=== PATIENT | male | born 1960 | race Hispanic/Latino ===

== ENCOUNTER 2021-01-25 19:47 | Emergency (ER) | payer SELFPAY ==
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
[2021-01-25] MEDS ORDERED: DIPHENHYDRAMINE 50 MG/ML VIAL ONE (20:35)
[2021-01-25] MEDS ORDERED: METHYLPREDNISOLONE 125 MG INJ ONE (20:35)
[2021-01-25] MEDS ORDERED: FAMOTIDINE 20 MG/2 ML VIAL IV ONE ×2 (20:35→21:03)
[2021-01-25] MEDS ORDERED: ALBUTEROL 2.5 MG/3 ML NEB SOL ONE (20:37)
[2021-01-25] MEDS ORDERED: IPRATROPIUM BROM 0.5MG/2.5ML ONE (20:37)
[2021-01-25 20:42] LABS: Absolute Lymphocytes (CBC) 1.1 K/uL (0.7-4.9); Basophils % 0.2 % (0-1.3); Hematocrit 44.9 % (39.6-49.0); Lymphocytes % 8.3 % (15.3-44.8); MPV 9.1 fL (7.6-11.3); RBC Red Blood Cell Count 5.03 M/uL (4.33-5.43)
[2021-01-25 20:57] LABS: Albumin 3.6 g/dL (3.4-5.0); Bilirubin Total 0.6 mg/dL (0.2-1.0); Potassium 3.8 mmol/L (3.5-5.1); Protein, Total 6.5 g/dL (6.4-8.2)
[2021-01-25] MEDS ORDERED: NA CHLORIDE 0.9% 1,000 ML ONE (21:03)
[2021-01-25 21:55] LABS: Blood Morphology Comment NOT SEEN (NOT SEEN); Platelet Estimate ADEQ
--- NOTE | 2021-01-25 22:53 | ER ---
Nurse's Notes [facility] Name: Fox Michele Age: 60 yrs Sex: Male : 1960 Arrival Date: 01/25/2021 Time: 19:54 Bed 18 Private MD: Diagnosis: Allergy, unspecified Presentation: 01/25 20:30 Ebola Screen: No symptoms or risks identified at this time. ea 20:30 Initial Sepsis Screen: Does the patient meet any 2 criteria? No. Patient's initial ea sepsis screen is negative. Does the patient have a suspected source of infection? No. Patient's initial sepsis screen is negative. Risk Assessment: Do you want to hurt yourself or someone else? Patient reports no desire to harm self or others. 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 ak2 Coronavirus screen: Client denies travel out of the [place] in the last 14 days. Onset: The symptoms/episode began/occurred acutely, 3 hour(s) ago. Anaphylaxis evaluation, the patient reports or I have noted the following symptoms which indicate a significant risk of anaphylaxis: shortness of breath urticaria. 20:35 Method Of Arrival: Ambulatory ak2 20:37 Coronavirus screen: At this time, the client does not indicate any symptoms associated ea with coronavirus-19. Onset of symptoms was January 25, 2021. 20:37 Acuity: KATRINA 2 ak2 Triage Assessment: 20:37 General: Appears in no apparent distress. ak2 Historical: - Allergies: 20:30 No Known Allergies; ea - Immunization history:: Adult Immunizations unknown. - Social history:: Patient/guardian denies using alcohol, street drugs, The patient lives with family, Smoking status: unknown. - Family history:: not pertinent. Screenin:26 Abuse screen: Denies threats or abuse. Nutritional screening: No deficits noted. ea Tuberculosis screening: No symptoms or risk factors identified. Fall Risk IV access (20 points). Assessment: 20:36 General: Appears uncomfortable, Behavior is appropriate for age. Pain: Denies pain. ea Neuro: Level of Consciousness is awake, alert, obeys commands, Oriented to person, place, time. Cardiovascular: Patient's skin is warm and dry. Respiratory: Airway is patent Respiratory effort is even, unlabored, Respiratory pattern is regular, symmetrical. 21:05 Reassessment: Patient and/or family updated on plan of care and expected duration. Pain ea level reassessed. Patient is alert, oriented x 3, equal unlabored respirations, skin warm/dry/pink. Patient states feeling better. 22:41 Reassessment: Patient and/or family updated on plan of care and expected duration. Pain ea level reassessed. Patient is alert, oriented x 3, equal unlabored respirations, skin warm/dry/pink. 23:00 Reassessment: Patient and/or family updated on plan of care and expected duration. Pain ea level reassessed. Patient is alert, oriented x 3, equal unlabored respirations, skin warm/dry/pink. Discharge instruction given to patient verbalized the understanding of instruction. Pt left ED ambulatory tolerating well. Vital Signs: 20:35 BP 120 / 86; Pulse 56; Resp 20; Temp 98.3; Pulse Ox 97% ; ak2 21:06 BP 129 / 68; Pulse 100; Resp 21; Pulse Ox 96% on R/A; ea 22:41 BP 112 / 72; Pulse 98; Resp 20; Pulse Ox 95% ; ea 23:01 BP 120 / 68; Pulse 90; Resp 18; Pulse Ox 98% ; ea ED Course: 19:54 Patient arrived in ED. es 20:14 Arnoldo Purvsi MD is Attending Physician. ma2 20:21 Luciana Do RN is Primary Nurse. ea 20:29 Arm band placed on right wrist. Patient placed in an exam room, on a stretcher, on ea pulse oximetry. 20:29 Patient has correct armband on for positive identification. Bed in low position. Call ea light in reach. Side rails up X2. gear and spline grinder on. Pulse ox on. NIBP on. 20:37 Triage completed. ak2 20:37 Inserted saline lock: 20 gauge in right antecubital area, using aseptic technique. ea Blood collected. 23:01 No provider procedures requiring assistance completed. IV discontinued, intact, ea bleeding controlled, No redness/swelling at site. Pressure dressing applied. Administered Medications: 20:28 Drug: Pepcid (famotidine) 10 mg Route: IVP; Site: right antecubital; ea 21:50 Follow up: Response: No adverse reaction ea 20:28 Drug: Benadryl (diphenhydrAMINE) 50 mg Route: IVP; Site: right antecubital; ea 21:50 Follow up: Response: No adverse reaction ea 20:29 Drug: SOLU-Medrol (methylPrednisoLONE) 125 mg Route: IVP; Site: right antecubital; ea 21:50 Follow up: Response: No adverse reaction ea 20:34 CANCELLED (Other Intervention Used): Benadryl (diphenhydrAMINE) 25 mg IVP once ea 20:35 Not Given (Other Intervention Used): Albuterol 2.5 mg Inhalation once ea 20:35 Drug: Albuterol - atroVENT (ipratropium) (3:1) (2.5 mg - 0.5 mg) 3 ml Route: Nebulizer; ea 21:50 Follow up: Response: No adverse reaction ea 20:36 Not Given (Duplicate Order): MethylPrednisoLONE 125 mg IVP once ea 20:50 Drug: Pepcid (famotidine) 20 mg Route: IVP; Site: right antecubital; ea 21:50 Follow up: Response: No adverse reaction ea 20:50 Drug: NS 0.9% 1000 ml Route: IV; Rate: 1 bolus; Site: right antecubital; ea 21:50 Follow up: Response: No adverse reaction; IV Status: Completed infusion; IV Intake: ea 1000ml Intake: 21:50 IV: 1000ml; Total: 1000ml. ea Outcome: 22:53 Discharge ordered by . praveen 23:01 Discharged to home ambulatory. ea 23:01 Condition: stable 23:01 Discharge instructions given to patient, Instructed on discharge instructions, follow up and referral plans. medication usage, Demonstrated understanding of instructions, follow-up care, medications, Prescriptions given X 3. 23:03 Patient left the ED. ea Signatures: Deneen Cagle Elena, RN RN Arnoldo Whiteside MD MD ma2 [place], Anthony ak2 Corrections: (The following items were deleted from the chart) 20:34 20:28 Benadryl (diphenhydrAMINE) 25 mg IVP in right antecubital ea ea 20:35 20:28 Albuterol 2.5 mg Inhalation ea ea
--- NOTE | 2021-01-25 22:53 | EDPHYS ---
Physician Documentation [facility] Name: Fox Michele Age: 60 yrs Sex: Male : 1960 Arrival Date: 01/25/2021 Time: 19:54 Bed 18 Private MD: ED Physician Arnoldo Purvis HPI: 01/25 21:38 This 60 yrs old Male presents to ER via Ambulatory with complaints of Itching, ma2 Breathing Difficulty. 21:38 The patient has shortness of breath at rest. Onset: The symptoms/episode began/occurred ma2 gradually, 3 day(s) ago. Associated signs and symptoms: Pertinent negatives: productive cough, fever, loss of consciousness. Severity of symptoms: At their worst the symptoms were moderate in the emergency department the symptoms are unchanged. The patient has not experienced similar symptoms in the past. Historical: - Allergies: 20:30 No Known Allergies; ea - Immunization history:: Adult Immunizations unknown. - Social history:: Patient/guardian denies using alcohol, street drugs, The patient lives with family, Smoking status: unknown. - Family history:: not pertinent. ROS: 21:38 Constitutional: Negative for fever, chills, and weight loss. ma2 21:38 All other systems are negative. Exam: 21:38 Constitutional: This is a well developed, well nourished patient who is awake, alert, ma2 and in no acute distress. Head/Face: Normocephalic, atraumatic. Eyes: Pupils equal round and reactive to light, extra-ocular motions intact. Lids and lashes normal. Conjunctiva and sclera are non-icteric and not injected. Cornea within normal limits. Periorbital areas with no swelling, redness, or edema. ENT: Nares patent. No nasal discharge, no septal abnormalities noted. Tympanic membranes are normal and external auditory canals are clear. Oropharynx with no redness, swelling, or masses, exudates, or evidence of obstruction, uvula midline. Mucous membranes moist. Neck: Trachea midline, no thyromegaly or masses palpated, and no cervical lymphadenopathy. Supple, full range of motion without nuchal rigidity, or vertebral point tenderness. No Meningismus. Chest/axilla: Normal chest wall appearance and motion. Nontender with no deformity. No lesions are appreciated. Cardiovascular: Regular rate and rhythm with a normal S1 and S2. No gallops, murmurs, or rubs. Normal PMI, no JVD. No pulse deficits. Respiratory: scattered wheezes, otherwise Lungs have equal breath sounds bilaterally, clear to auscultation and percussion. No rales, rhonchi o No increased work of breathing, no retractions or nasal flaring. Abdomen/GI: Soft, non-tender, with normal bowel sounds. No distension or tympany. No guarding or rebound. No evidence of tenderness throughout. Skin: diffuse hives, otherwise Warm, dry with normal turgor. Normal color with no rashes, no lesions, and no evidence of cellulitis. MS/ Extremity: Pulses equal, no cyanosis. Neurovascular intact. Full, normal range of motion. Neuro: Awake and alert, GCS 15, oriented to person, place, time, and situation. Cranial nerves II-XII grossly intact. Motor strength 5/5 in all extremities. Sensory grossly intact. Cerebellar exam normal. Normal gait. Vital Signs: 20:35 BP 120 / 86; Pulse 56; Resp 20; Temp 98.3; Pulse Ox 97% ; ak2 21:06 BP 129 / 68; Pulse 100; Resp 21; Pulse Ox 96% on R/A; ea 22:41 BP 112 / 72; Pulse 98; Resp 20; Pulse Ox 95% ; ea 23:01 BP 120 / 68; Pulse 90; Resp 18; Pulse Ox 98% ; ea MDM: 20:14 Patient medically screened. ma2 21:38 Differential diagnosis: asthma, Bronchitis Chronic Obstructive Pulmonary Disease ma2 reactive airway disease. Data reviewed: vital signs, nurses notes. Counseling: I had a detailed discussion with the patient and/or guardian regarding: the historical points, exam findings, and any diagnostic results supporting the discharge/admit diagnosis, the presence of at least one elevated blood pressure reading (>120/80) during this emergency department visit, the need for outpatient follow up. Response to treatment: the patient's symptoms have resolved after treatment. 01/25 20:28 Order name: CBC with Diff ma2 01/25 20:28 Order name: CMP ma2 01/25 20:29 Order name: CBC with Automated Diff; Complete Time: 22:53 EDMS 01/25 20: Order name: Comprehensive Metabolic Panel; Complete Time: 21:47 EDMS 01/25 20:43 Order name: Manual Differential; Complete Time: 22:53 EDMS Administered Medications: 20:28 Drug: Pepcid (famotidine) 10 mg Route: IVP; Site: right antecubital; ea 21:50 Follow up: Response: No adverse reaction ea 20:28 Drug: Benadryl (diphenhydrAMINE) 50 mg Route: IVP; Site: right antecubital; ea 21:50 Follow up: Response: No adverse reaction ea 20:29 Drug: SOLU-Medrol (methylPrednisoLONE) 125 mg Route: IVP; Site: right antecubital; ea 21:50 Follow up: Response: No adverse reaction ea 20:34 CANCELLED (Other Intervention Used): Benadryl (diphenhydrAMINE) 25 mg IVP once ea 20:35 Not Given (Other Intervention Used): Albuterol 2.5 mg Inhalation once ea 20:35 Drug: Albuterol - atroVENT (ipratropium) (3:1) (2.5 mg - 0.5 mg) 3 ml Route: Nebulizer; ea 21:50 Follow up: Response: No adverse reaction ea 20:36 Not Given (Duplicate Order): MethylPrednisoLONE 125 mg IVP once ea 20:50 Drug: Pepcid (famotidine) 20 mg Route: IVP; Site: right antecubital; ea 21:50 Follow up: Response: No adverse reaction ea 20:50 Drug: NS 0.9% 1000 ml Route: IV; Rate: 1 bolus; Site: right antecubital; ea 21:50 Follow up: Response: No adverse reaction; IV Status: Completed infusion; IV Intake: ea 1000ml Disposition: 01/25/21 22:53 Discharged to Home. Impression: Allergy, unspecified. - Condition is Stable. - Discharge Instructions: Allergy Skin Testing. - Prescriptions for Benadryl 25 mg Oral Capsule - take 1 capsule by ORAL route every 6 hours As needed; 30 tablet. Medrol (Jame) 4 mg Oral Tablets, Dose Pack - take 1 tablet by ORAL route as directed - follow package instructions; 1 packet. Pepcid 20 mg Oral Tablet - take 1 tablet by ORAL route once daily; 20 tablet. EpiPen 0.3 mg Injection auto- injector - inject 1 pen by INTRAMUSCULAR route one time Inject into the outer portion of the thigh, through clothing if necessary. Indicated in the emergency treatment of allergic reactions; 1 Cartridge. - Medication Reconciliation Form, Thank You Letter, Antibiotic Education, Prescription Opioid Use form. - Work release form (01/26/21 00:10). mw2 - Follow up: Private Physician; When: Tomorrow; Reason: Continuance of care. Signatures: Dispatcher [employer] Luciana Ritchie RN RN ea Alzahri, Mohammad, MD MD ma2 Jhoana Gloria mw2 Corrections: (The following items were deleted from the chart) 20:34 20:28 Benadryl (diphenhydrAMINE) 25 mg IVP once ordered. torsten sarmiento 20:34 20:28 Benadryl (diphenhydrAMINE) 25 mg IVP once given. torsten sarmiento 20:34 20:34 Benadryl (diphenhydrAMINE) 25 mg IVP once ordered. torsten sarmiento 23:03 22:53 01/25/2021 22:53 Discharged to Home. Impression: Allergy, unspecified. Condition ea is Stable. Prescriptions for Benadryl 25 mg Oral Capsule - take 1 capsule by ORAL route every 6 hours As needed; 30 tablet, Medrol (Jame) 4 mg Oral Tablets, Dose Pack - take 1 tablet by ORAL route as directed - follow package instructions; 1 packet, Pepcid 20 mg Oral Tablet - take 1 tablet by ORAL route once daily; 20 tablet, EpiPen 0.3 mg Injection auto-injector - inject 1 pen by INTRAMUSCULAR route one time Inject into the outer portion of the thigh, through clothing if necessary. Indicated in the emergency treatment of allergic reactions; 1 Cartridge. and Forms are Medication Reconciliation Form, Thank You Letter, Antibiotic Education, Prescription Opioid Use. Follow up: Private Physician; When: Tomorrow; Reason: Continuance of care. ma2
[2021-01-25 23:55] VITALS: TEMP 98.3
[2021-01-26 01:35] VITALS: BP 120/68; O2SAT 98
== END 2021-01-25 23:03 | disposition home or self-care (01) ==
LOC: ER 19:47
DX: R06.02 Shortness of breath (principal); Z91.09 Other allergy status, other than to drugs and biological substances
CPT/HCPCS: 36415; 80053; 85025; 96361; 96374; 96375; 99285; J1200; J2930; J7030